=== PATIENT | female | born 2000 | race Two or more races ===

== ENCOUNTER 2020-01-20 19:05 | Outpatient (CLI) | payer OTHER, SELFPAY ==
[2020-01-20 19:26] VITALS: BP 131/76; PULSE 95
[2020-01-20 19:31] VITALS: BP 126/74; PULSE 89
[2020-01-20 19:46] VITALS: BP 124/70; PULSE 82
[2020-01-20 20:01] VITALS: BP 134/74; PULSE 77
[2020-01-20 20:16] VITALS: BP 132/68; PULSE 78
[2020-01-20 20:31] VITALS: BP 121/70; PULSE 83
--- NOTE | 2020-01-20 20:49 | PC.NURSE ---
2027- spoke with Dr. Bullock- pt came in for DFM. tracing reviewed with Dr. Bullock. pt also stated that she was worried about her BP possibly being elevated. BP readings WNL-. pt states that she is feeling baby move now that she is sitting down and quite. ok to d/c home and pt to f/u in office this week for regular scheduled visit. pt eduacted on kick counts and will call L&D or office if concerns regarding DFM. pt to d/c home.
--- NOTE | 2020-01-21 21:12 | PM.OBTRLD ---
OB - Triage/Final Diagnosis Final Diagnosis (1) Decreased movement: Code(s): O36.8190 - Decreased movements, unspecified trimester, not applicable or unspecified Status: Acute
== END 2020-01-20 19:06 | disposition home or self-care (01) ==
PROVIDERS: PCP Physician Assistant; Visit Provider Obstetrics & Gynecology
DX: O36.8190 Decreased fetal movements, unspecified trimester, not applicable or unspecified (principal); Z3A.00 Weeks of gestation of pregnancy not specified
CPT/HCPCS: 59025

== ENCOUNTER 2020-01-27 17:52 | Inpatient (IN) | payer OTHER, SELFPAY ==
[2020-01-27] VITALS (22 sets, daily range): BP systolic 141–166; BP diastolic 74–90; PULSE 68–89; TEMP 36.4; BMI 53.7
[2020-01-27] MEDS: LACTATED RINGERS 1,000 ML 125 ML IV CONT (18:30)
--- NOTE | 2020-01-27 18:38 | LDADM ---
This patient, Sonia Cotton, was admitted to Labor/Delivery/Recovery 108 on 01/27/20 at 17:52. Plans for labor, pain management and were discussed with patient. Patient/family oriented to hospital policies and general routines including ID bracelet, bed and alarms, visiting hours, pain management, procedures, bathroom and other care routines, personal items, smoking policy, room service/diet and guest tray routines, infant security routines, and visiting hours. Patient/Family are encouraged to report perceived risks to care and to ask questions if they do not understand what they are told or what they should do. See OBIX for further documentation.
[2020-01-27 19:07] LABS: Basophils Percent Auto 0.1 % (0.2-1.2); Eosinophils Absolute Auto 0.1 K/mm3 (0-0.3); Eosinophils Percent Auto 1.4 % (0-4.4); Hematocrit 39.3 % (37.0-47.0); Hemoglobin 13.8 g/dL (12.0-15.0); Immature Granulocyte Absolute 0.05 K/mm3 (0.00-0.031); Immature Granulocyte Percent A 0.5 % (0-0.5); Lymphocytes Absolute Auto 1.84 K/mm3 (0.9-3.2); Lymphocytes Percent Auto 18.3 % (18.3-44.2); Mean Corpuscular HGB Conc 35.1 g/dl (32-36); Mean Corpuscular Volume 88.3 fl (80-100); Mean Platelet Volume 10.6 fl (7.4-10.4); Monocytes Absolute Auto 0.6 K/mm3 (0.1-0.6); Monocytes Percent Auto 6.3 % (2.6-8.5); Neutrophils Absolute Auto 7.4 K/mm3 (1.3-6.7); Neutrophils Percent Auto 73.4 % (45.5-73.1); Platelet Count Result 237 k/mm3 (150-375); Red Blood Count 4.45 M/mm3 (4.2-5.4); Red Cell Distribution Width 12.6 % (11.5-14.5)
[2020-01-27 19:30] LABS: Amphetamine Screen Urine Negative (Negative); Barbiturate Screen Urine Negative (Negative); Benzodiazepines Screen Urine Negative (Negative); Cannabinoid Screen Urine Positive (Negative); Cocaine Screen Urine Negative (Negative); Methadone Screen Urine Negative (Negative); Opiate Screen Urine Negative (Negative); Phencyclidine Screen Urine Negative (Negative)
[2020-01-27] MEDS: DINOPROSTONE 10 MG VAG INSERT VAGINAL (19:32)
[2020-01-27 20:07] LABS: HIV 1/2 Ab P24 Ag Result Negative (Negative)
[2020-01-27 21:35] LABS: Creatinine Urine 133.2 mg/dL; Total Protein Urine Random 60 mg/dL
[2020-01-27 22:47] LABS: Alanine Aminotransferase 12 U/L (4-35); Albumin Level 3.3 g/dL (3.5-5.1); Alkaline Phosphatase 181 U/L (38-126); Aspartate Amino Transferase 19 U/L (14-36); Bilirubin,Total 0.2 mg/dL (0.2-1.3); Blood Urea Nitrogen 9 mg/dL (7-17); Calcium 8.8 mg/dL (8.4-10.2); Carbon Dioxide 21 mmol/L (22-30); Chloride 106 mmol/L (98-107); Estimated CRCL calculation 187 ml/min; Estimated Glomerular Filt Rate > 60; Glucose 78 mg/dL (65-105); Potassium 3.8 mmol/L (3.4-5.0); Sodium 133 mmol/L (137-145)
[2020-01-28] VITALS (395 sets, daily range): BP systolic 84–182; BP diastolic 30–133; PULSE 64–153; TEMP 35.5–36.6; O2SAT 90–100
[2020-01-28] MEDS: LABETALOL HCL INJ 100 MG/20 ML VIAL 20 MG IV PUSH
[2020-01-28] MEDS: LACTATED RINGERS 1,000 ML 75 ML IV CONT ×2 (00:30→14:48)
[2020-01-28] MEDS: MAGNESIUM SULF 4 GM/WATER100ML 4 GM/100 ML BAG IVPB (00:30)
[2020-01-28] MEDS: MAGNESIUM SULF 20GM/WATER500ML 500 ML 50 MG IV CONT ×3 (01:00→21:01)
[2020-01-28] MEDS: ACETAMINOPHEN 325 MG TABLET 650 MG PO ×3 (07:06→18:27)
[2020-01-28 07:07] LABS: Rapid Plasma Reagin Non-Reactive (NonReactive)
--- NOTE | 2020-01-28 07:40 | PM.IMHP ---
H&P: HPI History of Present Illness Chief complaint: Induction of Labor Narrative: Sonia Cotton is a 20 year old female at 37w1d admitted for induction of labor secondary to IUGR with brain sparing changes. She was co-managed with MFM due to IUGR and US dopplers showed brain sparing changes and MFM recommended for delivery at 37 weeks. Upon admission to L&D, her BPs were noted to be elevated in the 140s-150s/90s. Preeclampsia labs were sent and urine protein-creatinine ratio was elevated at 0.45. Subsequently she had sustained severe range BPs, which required IV labetalol. Due to preeclampsia with severe features, MgSO4 was started. This morning she states she is feeling well. She did have a headache, but it is now resolved after tylenol. No vision changes. Reports good movement. Review of Systems Constitutional: Constitutional: Reports no additional constitutional complaints Eyes: Eyes: Denies blurry vision Cardiovascular: Cardiovascular: Reports no additional cardiovascular complaints Respiratory: Respiratory: Reports no additional respiratory complaints Gastrointestinal: Gastrointestinal: Reports no additional gastrointestinal complaints Genitourinary: Genitourinary: Reports no additional female genitourinary complaints Musculoskeletal: Musculoskeletal: Reports no additional musculoskeletal complaints Neurologic: Denies headache(s) (resolved with tylenol) Psychiatric: Psychiatric: Reports no additional psychiatric complaints [facility] Surgical History Surgical History (Updated 01/28/20 @ 07:46 by Jasmine Bullock DO) Hx of tonsillectomy Family History Family History Grandparent Colon cancer Grandparent Arthritis Mother Arthritis Hypertension Social History Social History Smoking status: Former smoker Second hand tobacco smoke exposure: No Substance use: current Substance use type: marijuana Gender identity (if verbalized by the patient): Female Spiritual care concerns: No Meds Home Medications and Allergies Allergies Allergy/AdvReac Type Severity Reaction Status Date / Time No Known Allergies Allergy Unverified 02/22/19 14:48 Vital Signs Vital Signs - 24 hr 01/27/20 18:26 01/27/20 18:30 01/27/20 18:45 Temperature 36.4 C L Pulse Rate 89 82 82 Blood Pressure 159/87 H 166/88 H 158/81 H Pulse Oximetry 01/27/20 19:00 01/27/20 19:15 01/27/20 19:30 Temperature Pulse Rate 78 82 77 Blood Pressure 152/86 H 149/90 H 158/82 H Pulse Oximetry 01/27/20 19:45 01/27/20 20:00 01/27/20 20:15 Temperature Pulse Rate 75 76 72 Blood Pressure 145/79 H 154/84 H 151/82 H Pulse Oximetry 01/27/20 20:30 01/27/20 20:45 01/27/20 21:00 Temperature Pulse Rate 77 76 80 Blood Pressure 150/79 H 151/85 H 157/79 H Pulse Oximetry 01/27/20 21:15 01/27/20 21:45 01/27/20 22:00 Temperature Pulse Rate 76 72 74 Blood Pressure 155/78 H 161/77 H 146/76 H Pulse Oximetry 01/27/20 22:15 01/27/20 22:30 01/27/20 22:45 Temperature Pulse Rate 75 85 81 Blood Pressure 141/74 H 150/83 H 158/85 H Pulse Oximetry 01/27/20 23:00 01/27/20 23:19 01/27/20 23:30 Temperature Pulse Rate 78 80 71 Blood Pressure 163/84 H 152/89 H 166/90 H Pulse Oximetry 01/27/20 23:45 01/28/20 00:00 01/28/20 00:05 Temperature Pulse Rate 68 76 Blood Pressure 163/86 H 169/89 H Pulse Oximetry 99 100 01/28/20 00:10 01/28/20 00:15 01/28/20 00:20 Temperature Pulse Rate 74 75 Blood Pressure 172/83 H 162/74 H Pulse Oximetry 100 100 100 01/28/20 00:22 01/28/20 00:25 01/28/20 00:30 Temperature Pulse Rate 74 72 Blood Pressure 157/79 H 159/77 H Pulse Oximetry 100 100 01/28/20 00:35 01/28/20 00:40 01/28/20 00:45 Temperature Pulse Rate 76 Blood Pressure 155/75 H Pulse Oximetry 100 99 100 01/28/20 00:50 01/28/20 00:55
[2020-01-28] MEDS: OXYTOCIN 30 UNITS/NS 500 ML 30 UNITS/500 ML BAG 6 UNITS IV CONT (07:42)
--- NOTE | 2020-01-28 13:10 | PM.OBPNLAB ---
Pain Control Date/time seen: 01/28/20 13:10 S: Headache is back, will try tylenol again. O: SVE: 1-2cm/50/-3. AROM attempted, small amount of fluid return, will monitor. Category1 tracing. Accels with scalp stim. A: - Preeclampsia with severe features - IUGR P: - Conitnue pitocin for IOL - Place IUPC when able
--- NOTE | 2020-01-28 14:37 | WPDANESEPP ---
Anes - Eval Pre Procedure Procedure: labor epidural Date/Time: 01/28/20 14:37 Surgeon: dick Preop Diagnosis: Abd pain with contractions Pre Op Diagnosis: Induction of Labor Patient Data Age: 20 Gender: F Height: 5 ft 1 in Weight: 129 kg Last Vital Signs Temp 96.1 F L 01/28/20 13:02 Pulse 87 01/28/20 14:30 BP 162/94 H 01/28/20 14:30 Pulse Ox 100 01/28/20 14:37 Allergies Allergy/AdvReac Type Severity Reaction Status Date / Time No Known Allergies Allergy Unverified 02/22/19 14:48 Home Medications Medication Instructions Recorded Confirmed Type aspirin 81 mg PO DAILY 01/28/20 01/28/20 History Laboratory Tests 01/27/20 01/27/20 01/27/20 19:00 19:00 19:00 WBC 10.0 K/mm3 K/mm3 (4.5-10.0) RBC 4.45 M/mm3 M/mm3 (4.2-5.4) Hgb 13.8 g/dL g/dL (12.0-15.0) Hct 39.3 % % (37.0-47.0) MCV 88.3 fl fl (80-100) MCH 31.0 pg pg (26-34) MCHC 35.1 g/dl g/dl (32-36) RDW 12.6 % % (11.5-14.5) Plt Count 237 k/mm3 k/mm3 (150-375) MPV 10.6 fl H fl (7.4-10.4) Immature Gran % (Auto) 0.5 % % (0-0.5) Neut % (Auto) 73.4 % H % (45.5-73.1) Lymph % (Auto) 18.3 % % (18.3-44.2) Gosper % (Auto) 6.3 % % (2.6-8.5) Eos % (Auto) 1.4 % % (0-4.4) Baso % (Auto) 0.1 % L % (0.2-1.2) Lymph # (Auto) 1.84 K/mm3 K/mm3 (0.9-3.2) [place] # (Auto) 0.6 K/mm3 K/mm3 (0.1-0.6) Eos # (Auto) 0.1 K/mm3 K/mm3 (0-0.3) Baso # (Auto) 0.0 K/mm3 K/mm3 (0.0-0.1) Abs Immat Gran (auto) 0.05 K/mm3 H K/mm3 (0.00-0.031) Absolute Neuts (auto) 7.4 K/mm3 H K/mm3 (1.3-6.7) Absolute Nucleated RBC 0.0 K/mm3 K/mm3 (0.0-0.012) Nucleated RBC % 0.0 % % (0.0-0.2) Sodium Potassium Chloride Carbon Dioxide BUN Creatinine Estim Creat Clear Calc Estimated GFR Glucose Uric Acid Calcium Total Bilirubin AST ALT Alkaline Phosphatase Total Protein Albumin U Random Total Protein Urine Creatinine Urine Opiates Screen Urine Methadone Screen Ur Barbiturates Screen Ur Phencyclidine Scrn Ur Amphetamine Screen U Benzodiazepines Scrn Urine Cocaine Screen U Cannabinoids Screen RPR Non-reactive (NonReactive) HIV 1&2 Ab/P24 Ag 4thGn Negative (Negative) Blood Type Antibody Screen 01/27/20 01/27/20 01/27/20 19:00 19:05 19:06 WBC RBC Hgb Hct MCV MCH MCHC RDW Plt Count MPV Immature Gran % (Auto) Neut % (Auto) Lymph % (Auto) Gosper % (Auto) Eos % (Auto) Baso % (Auto) Lymph # (Auto) Gosper # (Auto) Eos # (Auto) Baso # (Auto) Abs Immat Gran (auto) Absolute Neuts (auto) Absolute Nucleated RBC Nucleated RBC % Sodium Potassium Chloride Carbon Dioxide BUN Creatinine Estim Creat Clear Calc Estimated GFR Glucose Uric Acid Calcium Total Bilirubin AST ALT Alkaline Phosphatase Total Protein Albumin U Random Total Protein 60 mg/dL mg/dL Urine Creatinine 133.2 mg/dL mg/dL Urine Opiates Screen Negative (Negative) Urine
[2020-01-28] MEDS: SODIUM CHLORIDE 0.9% IV 1,000 ML 150 ML I-UTERINE ×2 (16:32→20:59)
[2020-01-29] VITALS (50 sets, daily range): BP systolic 142–162; BP diastolic 70–103; PULSE 55–144; RESP 16–18; TEMP 36.3–37; O2SAT 75–100
--- NOTE | 2020-01-29 00:39 | PM.OBPRVD ---
OB - Delivery Note Procedure Delivery date: 01/29/20 Induction method: AROM, per misoprostol protocol and per pitocin protocol Delivery monitor: external FHT, internal FHT and internal uterine Route of delivery: Laceration description: Periurethral - 1st Degree Delivery repair: vicryl (3-0) Specimen: Yes Estimated blood loss (mL): 400 Anesthesia type: Epidural [place] Baby Date of : 01/29/20 Time of : 00:12 Weeks of gestation at delivery: 37 Infant gender: Male Weight (pounds): 4 Weight (ounces): 2 presentation: vertex position: Right Occiput Anterior Placenta delivery description: Spontaneous cord vessel description: 3 Vessels, Nuchal Cord and Reduced score one minute: 7 score five minutes: 9
[2020-01-29] MEDS: OXYTOCIN 30 UNITS/NS 500 ML 30 UNITS/500 ML BAG 125 UNITS IV CONT (00:41)
[2020-01-29] MEDS: LACTATED RINGERS 1,000 ML 125 ML IV CONT ×2 (02:27→19:06)
[2020-01-29] MEDS: BENZOCAINE 20% AER SPR (*SP) 56 GM CAN 1 SPRAY TOPICAL (02:28)
[2020-01-29] MEDS: WITCH HAZEL 40 PADS 1 PAD TOPICAL (02:28)
--- NOTE | 2020-01-29 02:39 | OP_ITS ---
DATE OF PROCEDURE: 01/29/2020 PROCEDURE: Normal spontaneous vaginal delivery. PRE-DELIVERY DIAGNOSES: 1. Thirty-seven week term gestation. 2. Intrauterine growth restriction. 3. Preeclampsia with severe features. 4. Obesity. POST-DELIVERY DIAGNOSES: 1. Thirty-seven week term gestation. 2. Intrauterine growth restriction. 3. Preeclampsia with severe features. 4. Obesity. ANESTHESIA: Epidural. ESTIMATED BLOOD LOSS: 400 mL. SPECIMEN: Placenta sent to pathology. FINDINGS: 1. Single live male born on January 29, 2022 at 0:12 a.m., 7 and 9. Weight 4 pounds 2 ounces. 2. Periurethral laceration repaired with 3-0 Vicryl. BRIEF HISTORY: A 20-year-old, G1, P0, at 37 weeks gestation with a history of intrauterine growth restriction, admitted for medically indicated induction of labor, cervical ripening with Cervidil followed by Pitocin and artificial rupture of membranes for induction of labor. The patient progressed to complete. During the labor, the patient was noted to have elevated blood pressures in the severe range. Labs were obtained. Urine protein-creatinine ratio was elevated at 0.45. At this point, diagnosis of preeclampsia with severe features was made. IV labetalol was administered and the patient was placed on Mag sulfate for eclampsia prevention. DESCRIPTION OF PROCEDURE: Once the patient was noted to be complete and ready to push, the labor bed was broken down and the patient's legs were placed in stirrups for support with contractions and maternal efforts. The presented in HERIBERTO position. The head was delivered. There was a loose nuchal cord. The rest of the body was quickly delivered and the nuchal cord was reduced after delivery of baby. Cord was clamped and cut. Cord gases collected. Placenta was delivered spontaneously. Exam was performed to identify any lacerations. A superficial periurethral laceration was noted. This was reapproximated using 3-0 Vicryl. Good hemostasis noted. Fundal massage was applied. IV oxytocin was administered. The patient tolerated the procedure well. All instrument and sponge counts were correct at the end of the procedure. The patient will remain on Mag sulfate for 24 hours for seizure prophylaxis. D I MT: Mehrdad
[2020-01-29] MEDS: IBUPROFEN 600 MG TABLET PO (06:05)
[2020-01-29] MEDS: MAGNESIUM SULF 20GM/WATER500ML 500 ML 50 MG IV CONT ×2 (07:47→20:17)
[2020-01-29] MEDS: DOCUSATE SODIUM 100 MG CAPSULE PO (07:48)
[2020-01-29] MEDS: MULTIVIT/MIN/PREN/FOL AC/IRON TABLET 1 TAB PO (07:48)
--- NOTE | 2020-01-29 09:30 | PC.NURSE ---
Consult with pt., discussed feeding status and need to initiate pumping. Mother will rest and call out when ready.
[2020-01-29] MEDS: ACETAMINOPHEN 325 MG TABLET 650 MG PO (11:35)
--- NOTE | 2020-01-29 13:43 | PCCCNOTE ---
Care Coordination met with pt. and FOB in the room this morning to discuss discharge planning. Pt.'s current discharge plan is to return home with FOB and his family. Pt. states that FOB's family are very supportive and can assist with baby if needed. Pt. confirms that she has everything needed to bring the baby home. She states she has a car seat and understands that she will bring it in to be examined prior to discharge. Pt. is attempting to breast feed baby but having difficulty. If she is unsuccessful, pt. states that she will pump and bottle feed the baby. She states she has started the paperwork for [facility], and was provided with local resources. Pt. tested positive for THC at time of discharge, the baby was not tested. Pt. is aware that CC will report to DCFS and states she has no questions or concerns. Care Coordination completed online report and current pending case reference number is [id number]. Pt. has no concerns and states that she has no prior DCFS involvement. Will follow.
[2020-01-30 00:40] VITALS: BP 151/93; PULSE 97; RESP 18; TEMP 36.2; O2SAT 100
[2020-01-30 06:19] LABS: Hematocrit 32.2 % (37.0-47.0); Hemoglobin 11.1 g/dL (12.0-15.0)
[2020-01-30 06:25] LABS: Alanine Aminotransferase 12 U/L (4-35); Albumin Level 3.1 g/dL (3.5-5.1); Alkaline Phosphatase 125 U/L (38-126); Aspartate Amino Transferase 20 U/L (14-36); Bilirubin,Total 0.1 mg/dL (0.2-1.3); Blood Urea Nitrogen 6 mg/dL (7-17); Calcium 7.7 mg/dL (8.4-10.2); Carbon Dioxide 26 mmol/L (22-30); Chloride 104 mmol/L (98-107); Estimated CRCL calculation 138 ml/min; Estimated Glomerular Filt Rate > 60; Glucose 83 mg/dL (65-105); Magnesium 3.4 mg/dL (1.6-2.3); Potassium 4.1 mmol/L (3.4-5.0); Sodium 134 mmol/L (137-145)
--- NOTE | 2020-01-30 06:58 | PC.NURSE ---
Took patient off of mag @ 0040. BP was 151/93.
--- NOTE | 2020-01-30 07:28 | WPDANLDPN2 ---
Anes-Prog Note L&D Date/Time: 01/30/20 07:28 Comfortable throughout: labor and delivery Neuraxial method: epidural Epidural/Spinal procedure site: clean & non-tender Neuro status: Neuro function grossly intact. Cardiovascular status: normal Respiratory status: normal Airway patency: baseline Mental status: baseline Post-Op hydration status: normal Vital Signs: Last Vital Signs Temp 36.2 C L 01/30/20 00:40 Pulse 97 01/30/20 00:40 Resp 18 01/30/20 00:40 BP 151/93 H 01/30/20 00:40 Pulse Ox 100 01/30/20 00:40 I/O: Intake & Output 01/29/20 01/29/20 01/30/20 15:59 23:59 07:59 Intake Total 1000 900 600 Output Total 2150 3050 Balance 1000 -1250 -2450 Post-procedural complaints: none Patient feedback: Patient satisfied with anesthetic care.
[2020-01-30 07:55] VITALS: BP 143/81; PULSE 98; RESP 18; TEMP 37.3; O2SAT 100
--- NOTE | 2020-01-30 08:34 | PM.OBPNVD ---
OB - PN: Subj Subjective Date/time seen: 01/30/20 08:34 Interval history: 20yo s/p on 01/28. complicated but IUGR. Intrapartum course complicated by precclampsia with severe features. S/p MgSO4. Patient comments: no complaints and pain well controlled [place] baby status: doing well and other (phototherapy) Narrative: Doing better this morning. Still having cramping. Lochia stable. No headaches, blurry vision, scotomas. OB - PN: Obj Data Labs CBC & Chem 7: 01/30/20 05:40 01/30/20 05:40 Labs: Laboratory Results - last 24 hr 01/30/20 01/30/20 05:40 05:40 Hgb 11.1 L Hct 32.2 L Sodium 134 L Potassium 4.1 Chloride 104 Carbon Dioxide 26 BUN 6 L Creatinine 0.70 Estim Creat Clear Calc 138 Estimated GFR > 60 Glucose 83 Calcium 7.7 L Magnesium 3.4 H Total Bilirubin 0.1 L AST 20 ALT 12 Alkaline Phosphatase 125 Total Protein 6.0 L Albumin 3.1 L OB - PN A/P Assessment and Plan (1) Preeclampsia, severe: Code(s): O14.10 - Severe pre-eclampsia, unspecified trimester Status: Acute Assessment and Plan: BPs in 150s/90s Will start procardia 30mg daily (2) IUGR (intrauterine growth restriction): Status: Acute (3) (normal spontaneous vaginal delivery): Code(s): O80 - Encounter for full-term uncomplicated delivery Status: Acute Assessment and Plan: Routine care Pain control DC home tomorrow 01/30 Time Spent With Patient Time: Total time spent is greater than 50% in coordination of care (as documented) at patient's floor/unit and/or counseling patient: Review of Systems Constitutional: Constitutional: Reports no additional constitutional complaints Respiratory: Respiratory: Reports no additional respiratory complaints Gastrointestinal: Gastrointestinal: Reports no additional gastrointestinal complaints Genitourinary: Genitourinary: Reports no additional female genitourinary complaints Neurologic: Reports system reviewed and no additional complaints, except as documented Exam Const: General: comfortable, no acute distress, alert and awake Orientation/consciousness: patient oriented x3 Resp: Effort & Inspection: normal respiratory effort Auscultation: clear to auscultation bilaterally Cardio: Rate: regular rate GI: Other: soft, non-distended, non tender Psych: Appearance: grossly normal Mental Status: mental status grossly normal Affect: normal affect Attitude: cooperative Judgement: Good judgement present (Psych)
[2020-01-30] MEDS: IBUPROFEN 600 MG TABLET PO ×2 (09:31→16:00)
[2020-01-30] MEDS: NIFEdipine 30 MG TAB.ER.24 PO (09:31)
[2020-01-30] MEDS: DOCUSATE SODIUM 100 MG CAPSULE PO (09:31)
[2020-01-30] MEDS: MULTIVIT/MIN/PREN/FOL AC/IRON TABLET 1 TAB PO (09:31)
[2020-01-30 12:15] VITALS: BP 146/83; PULSE 90; RESP 18; TEMP 36.7; O2SAT 100
--- NOTE | 2020-01-30 15:30 | PC.NURSE ---
Consult with pt., 2 times this day to assist with pumping. Mother states she wishes to formula feed only.
[2020-01-30 16:08] VITALS: BP 140/80; PULSE 106; RESP 18; O2SAT 100
[2020-01-30 19:22] VITALS: BP 122/71; PULSE 116; RESP 16; TEMP 37.1; O2SAT 97
[2020-01-31 07:30] VITALS: BP 148/75; PULSE 120; RESP 20; TEMP 36.1; O2SAT 99
[2020-01-31] MEDS: MULTIVIT/MIN/PREN/FOL AC/IRON TABLET 1 TAB PO (07:43)
[2020-01-31] MEDS: IBUPROFEN 600 MG TABLET PO ×3 (07:43→23:28)
[2020-01-31] MEDS: DOCUSATE SODIUM 100 MG CAPSULE PO (07:43)
--- NOTE | 2020-01-31 08:00 | P.PNOB_ITS ---
OB - PN: Subj Subjective Date/time seen: 01/31/20 08:00 Interval history: 20yo s/p on 01/28. complicated but IUGR. Intrapartum course complicated by precclampsia with severe features. S/p MgSO4. OB - PN: Obj Data Labs CBC & Chem 7: 01/30/20 05:40 01/30/20 05:40 OB - PN A/P Assessment and Plan (1) (normal spontaneous vaginal delivery): Code(s): O80 - Encounter for full-term uncomplicated delivery Status: Acute Assessment and Plan: Decision made to observe her BPs for one more night due to starting new BP medication for preeclampsia (2) Preeclampsia, severe: Code(s): O14.10 - Severe pre-eclampsia, unspecified trimester Status: Acute Assessment and Plan: Continue procardia 30mg daily (3) IUGR (intrauterine growth restriction): Status: Acute Time Spent With Patient Time: Total time spent is greater than 50% in coordination of care (as lynnn clive) at patient's floor/unit and/or counseling patient: Review of Systems Constitutional: Constitutional: Reports no additional constitutional complaints and Denies headache(s) (resolved with tylenol) Eyes: Eyes: Denies blurry vision ENT: Denies headache(s) (resolved with tylenol) Cardiovascular: Cardiovascular: Reports no additional cardiovascular complaints Respiratory: Respiratory: Reports no additional respiratory complaints Gastrointestinal: Gastrointestinal: Reports no additional gastrointestinal complaints Genitourinary: Genitourinary: Reports no additional female genitourinary complaints Musculoskeletal: Musculoskeletal: Reports no additional musculoskeletal complaints Neurologic: Reports system reviewed and no additional complaints, except as documented and Denies headache(s) (resolved with tylenol) Psychiatric: Psychiatric: Reports no additional psychiatric complaints Exam Const: General: comfortable, no acute distress, alert and awake Orientation/consciousness: patient oriented x3 Resp: Effort & Inspection: normal respiratory effort Auscultation: clear to auscultation bilaterally Cardio: Rate: regular rate GI: Inspection: non-distended Other: soft, non-distended, non tender Neuro: General: patient oriented x3 Psych: Appearance: grossly normal Mental Status: mental status grossly normal Affect: normal affect Attitude: cooperative Judgement: Good judgement present (Psych)
[2020-01-31] MEDS: NIFEdipine 30 MG TAB.ER.24 PO (08:08)
--- NOTE | 2020-01-31 08:57 | PM.OBDSVD ---
DS: Admitting Diagnosis Admitting Diagnosis Admitting Diagnosis: Severe pre-eclampsia, unspecified trimester DS: Discharge Diagnosis Discharge Diagnosis (1) (normal spontaneous vaginal delivery): Code(s): O80 - Encounter for full-term uncomplicated delivery Status: Acute Assessment and Plan: OK for DC today (2) Preeclampsia, severe: Code(s): O14.10 - Severe pre-eclampsia, unspecified trimester Status: Acute Assessment and Plan: Continue procardia 30mg daily (3) IUGR (intrauterine growth restriction): Status: Acute OB - DS: Summary OB Procedures : None OB Procedures Intrapartum: Spontaneous Vag Delivery OB Procedures: : None Peripartum Data Delivery Method: Natural Vaginal Laceration description: Periurethral - 1st Degree Status at Discharge Functional status at discharge: independent ambulation Overall status at discharge: patient is progressing back to baseline Time Spent with Patient Time attestation: Total time spent providing and/or coordinating discharge services: Exam Const: General: comfortable, no acute distress, alert and awake Orientation/consciousness: patient oriented x3 Resp: Effort & Inspection: normal respiratory effort Auscultation: clear to auscultation bilaterally Cardio: Rate: regular rate GI: Inspection: non-distended Other: soft, non-distended, non tender Neuro: General: patient oriented x3 Psych: Appearance: grossly normal Mental Status: mental status grossly normal Affect: normal affect Attitude: cooperative Judgement: Good judgement present (Psych) DS: Data Data Completed and Pending Pending studies at discharge: Pending at discharge 01/29/20 02:14 Surgical [PTH] Routine Discharge Plan Discharge Attending physician on discharge: Jasmine Bullock Discharging Clinician: Jasmine Bullock Patient Disposition: Home, Self-Care Activity: may shower, no straining, as tolerated and pelvic rest Diet: regular Discharge Instructions: Follow up in 1 week for BP check Patient Instructions: Antibiotic Form Stand Alone Forms: General Discharge Information Follow-up/Referrals: Jasmine Bullock DO [Physician] - Discharge Medications: New nifedipine [Procardia XL] 30 mg Tablet Extended Release 24hr 30 mg PO QAM Qty: 30 RF: 1 polysaccharide iron complex 150 mg iron Capsule 150 mg PO BIDWM Qty: 60 RF: 0 docusate sodium 100 mg Capsule 100 mg PO BID PRN (Reason: Constipation) Qty: 60 RF: 0 ibuprofen 600 mg Tablet 600 mg PO Q6H PRN (Reason: Cramping) Qty: 90 RF: 0 Discontinued aspirin 81 mg Tablet,Chewable 81 mg PO DAILY RF: 0 Date of admission: 01/27/20 17:52 Primary Care Provider: [facility] Admitting Provider: Jasmine Bullock Attending physician on admission: Jasmine Bullock
[2020-01-31 11:50] VITALS: BP 144/86; PULSE 110; RESP 16; TEMP 36.8; O2SAT 99
[2020-01-31 14:00] VITALS: BP 126/75; PULSE 110; RESP 20; TEMP 36.2; O2SAT 99
--- NOTE | 2020-01-31 18:50 | PC.NURSE ---
0830 call from [facility] , Dixon Santiago that pt will be visited by local DCFS security representative after report being filed on the mother, stating mother used drugs during the pregancy. 0935 Report to [facility] Specialist, about the [facility] evaluation to be done. 0948 Call From Ila,local [facility] security representative. 1100 Ila here and visited with mother. FOJefe left the hospital Call to be place to Dixon Santiago when baby is to be discharged home.
[2020-01-31 20:00] VITALS: BP 130/85; PULSE 102; RESP 18; TEMP 37; O2SAT 100
[2020-02-01] MEDS: NIFEdipine 30 MG TAB.ER.24 PO (07:29)
[2020-02-01] MEDS: IBUPROFEN 600 MG TABLET PO ×2 (07:29→14:51)
[2020-02-01] MEDS: DOCUSATE SODIUM 100 MG CAPSULE PO (07:29)
[2020-02-01 07:30] VITALS: BP 141/99; PULSE 98; RESP 18; TEMP 36.3; O2SAT 100
--- NOTE | 2020-02-01 15:06 | PCCCNOTE ---
Addendum entered by MICHELINE Fletcher 02/01/20 15:38: Received call from [facility] worker Dixon. At time of baby's discharge please call neonatal surgeon supervisor print line aDina Wei @ [phone] so that DCFS can meet pt. and baby at the home. Original Note: Social Service Consult Met with pt. and FOB today in room. Per nursing DCFS contacted hospital regarding a new report regarding concerns of pt. and FOB. Received call from Ila [facility] needleworker at who will come to hospital to discuss report with pt. Pt. lives in [place], [place] and [facility] worker Dixon out of [facility] is the original worker assigned case, phone: [phone]. Provided Ila with information including pt.'s positive result for THC at admission. At this time per DCFS Ila plan is for baby to be discharged with mother. [facility] worker Dixon has requested to be contacted on day of baby's discharged at above number. Nurse Lamar is aware. Also spoke to pt. regarding resources. Pt. reports she has everything she needs for baby including a crib, carseat, clothing, diapers, and bottles. Pt.'s family is supportive. Pt. plans to utilize [facility] services and has information to call at time of discharge. Pt. denies any further needs.
--- NOTE | 2020-02-01 17:44 | PC.NURSE ---
1740 Pt discharged. She will remain in a no-care bed to stay with her baby until he is discharged home.FOB also present.
[2020-02-04 09:48] VITALS: BP 122/76; PULSE 82; RESP 20; TEMP 36.9; O2SAT 100
== END 2020-02-01 17:40 | disposition home or self-care (01) | DRG 560 ==
LOC: ANHLDR 17:56 → ANHOB2 01-29 03:06
PROVIDERS: Admitting Provider Obstetrics & Gynecology; PCP Physician Assistant; Visit Provider Obstetrics & Gynecology
DX: O36.5930 Maternal care for other known or suspected poor fetal growth, third trimester, not applicable or unspecified (principal); Z37.0 Single live birth; Z3A.37 37 weeks gestation of pregnancy; O14.10 Severe pre-eclampsia, unspecified trimester; O36.8330 Maternal care for abnormalities of the fetal heart rate or rhythm, third trimester, not applicable or unspecified; O69.81X0 Labor and delivery complicated by cord around neck, without compression, not applicable or unspecified; O71.82 Other specified trauma to perineum and vulva; O99.214 Obesity complicating childbirth; E66.01 Morbid (severe) obesity due to excess calories; O99.72 Diseases of the skin and subcutaneous tissue complicating childbirth; L40.9 Psoriasis, unspecified
CPT/HCPCS: 36415; 80053; 80307; 82570; 83735; 84156; 84550; 85014; 85018; 85025; 86592; 86703; 86850; 86900; 86901; 88307; A9270; G0432; J2590; J2795; J3475; J7030; J7120